=== PATIENT | male | born 1955 | race Caucasian/White ===

== ENCOUNTER → 2017-03-21 | Outpatient (CLI) | payer MEDICARE | END | disposition home or self-care (01) | LOC: CFH 08:08 | PROVIDERS: ATTEND Internal Medicine Cardiovascular Disease | DX: I25.10 Atherosclerotic heart disease of native coronary artery without angina pectoris (principal) | CPT/HCPCS: 78452; 93017; A9502 ==

== ENCOUNTER → 2018-10-17 | Outpatient (CLI) | payer MEDICARE | END | disposition home or self-care (01) | LOC: CFH 08:43 | PROVIDERS: ATTEND Internal Medicine Cardiovascular Disease | DX: I25.9 Chronic ischemic heart disease, unspecified (principal); I21.9 Acute myocardial infarction, unspecified; I25.10 Atherosclerotic heart disease of native coronary artery without angina pectoris; I34.1 Nonrheumatic mitral (valve) prolapse; R00.0 Tachycardia, unspecified | CPT/HCPCS: 78452; 93017; 93306; A9502 ==

== ENCOUNTER → 2020-05-04 | Outpatient (CLI) | payer MEDICARE ==
[~2020-05-04] MED LIST: ASPI81TA45 PO; ATOR40TA78 PO; BUSP30TA PO; DIAZ10TA4 PO; FLUT15.845 NAS; JOINT SUPPLEMENT PO; LISI-167 PO; METO25TA91 PO; MIRT30TA4 PO; QUET50TA PO; SERT100T32 PO; fish oil PO; magnesium PO
[2020-05-04 14:05] LABS: ALBUMIN 3.8 g/dL (3.4-5.0)
[2020-05-04 14:14] LABS: ALANINE AMINOTRANSFERASE 30 U/L (12-78); ALKALINE PHOSPHATASE 96 U/L (45-117); BILIRUBIN,TOTAL 0.8 mg/dL (0.2-1.0); CREATININE 0.96 mg/dL (0.7-1.3); TOTAL PROTEIN 6.9 g/dL (6.4-8.2)
[2020-05-04 14:31] LABS: CHLORIDE 106 mmol/L (98-107)
[2020-05-04 14:32] LABS: ANION GAP 2 mmol/L (5-15)
== END | disposition home or self-care (01) ==
LOC: STAR 12:20
PROVIDERS: ATTEND Surgery
DX: Z01.818 Encounter for other preprocedural examination (principal); R94.31 Abnormal electrocardiogram [ECG] [EKG]; Z20.828 Contact with and (suspected) exposure to other viral communicable diseases
CPT/HCPCS: 80053; 87635; 93005

== ENCOUNTER 2020-05-10 06:04 | Day surgery (SDC) | payer MEDICARE ==
[2020-05-04 13:08] VITALS: BP 112/79
[~2020-05-10] VITALS: Ht 177.8 cm; Wt 94.0 kg
[2020-05-10] MEDS ORDERED: BUPIVACAINE/EPI 0.5% 1:200K ONE (06:48)
[2020-05-10] MEDS ORDERED: LACTATED RINGERS 1,000 ML IV SCH (07:00)
[2020-05-10] MEDS ORDERED: CHLORHEXIDINE 15 ML UDC MM ONE (07:00)
[2020-05-10] MEDS ORDERED: MIDAZOLAM 1 MG/ML, 2ML ONE (07:19)
[2020-05-10] MEDS ORDERED: FENTANYL PF 250 MCG/5ML ONE (07:19)
[2020-05-10] MEDS ORDERED: DEXAMETHASONE 4 MG/ML, 1ML ONE (07:22)
[2020-05-10] MEDS ORDERED: SUGAMMADEX 200 MG/2 ML IVPush ONE (07:49)
[2020-05-10] MEDS ORDERED: ONDANSETRON 2MG/ML, 2ML IVPush PRN (08:00)
[2020-05-10] MEDS ORDERED: PROMETHAZINE 25 MG SUPP PR PRN (08:00)
[2020-05-10] MEDS ORDERED: METOPROLOL 1 MG/ML, 5ML IV PRN (08:00)
[2020-05-10] MEDS ORDERED: FENTANYL PF 100 MCG/2ML IV PRN (08:00)
[2020-05-10] MEDS ORDERED: LORazepam 2 MG/ML, 1ML IVPush PRN (08:00)
[2020-05-10] MEDS ORDERED: LABETALOL 5MG/ML, 20ML IV PRN (08:00)
[2020-05-10] MEDS ORDERED: METHOCARBAMOL 1,000 MG in DEXTROSE 5% 100 ML IV PRN (08:00)
[2020-05-10] MEDS ORDERED: OXYcodone 5 MG/5 ML ORAL.SOL UDC PO PRN (08:00)
[2020-05-10] MEDS ORDERED: ACETAMINOPHEN 325 MG TABLET PO PRN (08:00)
[2020-05-10] MEDS ORDERED: PROMETHAZINE 25 MG/ML, 1ML IVPush PRN (08:00)
[2020-05-10] MEDS ORDERED: hydrALAzine 20 MG/ML, 1ML IV PRN (08:00)
[2020-05-10] MEDS ORDERED: MEPERIDINE/PF 25MG/0.5ML IVPush PRN (08:00)
[2020-05-10] MEDS ORDERED: HYDROmorphone 1 MG/ML, 1ML INJ IVPush PRN (08:00)
[2020-05-10] MEDS ORDERED: NEOSTIGMINE 1 MG/ML, 10ML ONE (08:13)
[2020-05-10] MEDS ORDERED: ONDANSETRON 2MG/ML, 2ML ONE (08:13)
[2020-05-10] MEDS ORDERED: PROPOFOL 10 MG/ML, 20ML ONE (08:13)
[2020-05-10] MEDS ORDERED: SUCCINYLCHOLINE 20 MG/ML, 10ML ONE (08:13)
[2020-05-10] MEDS ORDERED: ROCURONIUM 10MG/ML,5ML ONE (08:13)
[2020-05-10] MEDS ORDERED: CEFAZOLIN 1,000 MG ONE (08:13)
[2020-05-10] MEDS ORDERED: GLYCOPYRROLATE 0.2MG/1ML, 5ML ONE (08:13)
== END 2020-05-10 10:40 | disposition home or self-care (01) ==
LOC: OUT 06:04
PROVIDERS: ATTEND Surgery
DX: K80.10 Calculus of gallbladder with chronic cholecystitis without obstruction (principal); M19.90 Unspecified osteoarthritis, unspecified site; I10 Essential (primary) hypertension; Z88.3 Allergy status to other anti-infective agents; Z91.018 Allergy to other foods; Z98.890 Other specified postprocedural states; Z79.899 Other long term (current) drug therapy; Z98.52 Vasectomy status; Z85.828 Personal history of other malignant neoplasm of skin; Z72.89 Other problems related to lifestyle; Z79.82 Long term (current) use of aspirin; Z82.49 Family history of ischemic heart disease and other diseases of the circulatory system
CPT/HCPCS: 47562; 88304; J0330; J0690; J1100; J2250; J2405; J2704; J2710; J3010; J7120